=== PATIENT | male | born 1985 | race Caucasian/White ===

== ENCOUNTER 2024-11-04 19:28 | Emergency (ER) | payer OTHER ==
[~2024-11-04] VITALS: Ht 185.4 cm; Wt 102.1 kg
[2024-11-04] MEDS ORDERED: Ciprofloxacin Hydrochloride 0.3% OPHTHLAMIC BOTTLE OPH ONE (20:20)
== END 2024-11-04 20:28 | disposition home or self-care (01) ==
LOC: ED 19:28
DX: S05.02XA Injury of conjunctiva and corneal abrasion without foreign body, left eye, initial encounter (principal); X58.XXXA Exposure to other specified factors, initial encounter; Y93.89 Activity, other specified; Y92.89 Other specified places as the place of occurrence of the external cause; Y99.8 Other external cause status